=== PATIENT | male | born 1980 | race Caucasian/White ===

== ENCOUNTER → 2022-05-17 12:35 | Outpatient (CLI) | payer OTHER, SELFPAY ==
[2022-05-17 18:28] LABS: Adenovirus,PCR Not Detected (NotDetected); Bordetella Pertussis Not Detected (NotDetected); Chlamydophila Pneumoniae, PCR Not Detected (NotDetected); Coronavirus 19, PCR Not Detected (NotDetected); Coronavirus 229E Not Detected (NotDetected); Coronavirus NL63 Not Detected (NotDetected); Coronavirus OC43 Not Detected (NotDetected); Coronovirus HKU1,PCR Not Detected (NotDetected); Human Metapneumovirus Not Detected (NotDetected); Influenza A, PCR Not Detected (NotDetected); Influenza AH1, 2009 Not Detected (NotDetected); Influenza AH1, PCR Not Detected (NotDetected); Influenza AH3,PCR Not Detected (NotDetected); Influenza B, PCR Not Detected (NotDetected); Mycoplasma Pneumoniae, PCR Not Detected (NotDetected); Parainfluenza 1, PCR Not Detected (NotDetected); Parainfluenza 2, PCR Not Detected (NotDetected); Parainfluenza 3, PCR Not Detected (NotDetected); Parainfluenza 4, PCR Not Detected (NotDetected); Respiratory Syncytial Virus Not Detected (NotDetected); Rhinovirus/Enterovirus Not Detected (NotDetected)
== END ==
PROVIDERS: PCP Nurse Practitioner; Visit Provider Nurse Practitioner
DX: J06.9 Acute upper respiratory infection, unspecified (principal)
CPT/HCPCS: 87581; 87632; 87798; C9803; U0003; U0005

== ENCOUNTER → 2022-10-11 23:21 | Outpatient (CLI) | payer OTHER, SELFPAY ==
[2022-10-11 17:58] LABS: Microscopic, Urine URINE MICROSCOPIC (MICROSCOPIC)
[2022-10-11 18:37] LABS: Alanine Aminotransferase 22 U/L (12-78); Albumin Level 4.5 g/dl (3.5-5.0); Albumin/Globulin Ratio 1.6 (1.1-1.8); Alkaline Phosphatase 64 U/L (38-126); Aspartate Amino Transferase 31 U/L (17-59); Bilirubin,Total 0.6 mg/dl (0.2-1.3); Blood Urea Nitrogen 16 mg/dl (9-20); Carbon Dioxide 28 mmol/L (22.0-30.0); Chloride 105 mmol/L (98-107); Chol/HDL Ratio 3.1 (1-3.5); Cholesterol 156 mg/dl (140-200); Estimated Glomerular Filt Rate 123 ml/min (>60); GFR (African American) 149 ML/MIN (>60); Globulin 2.8 g/dL (1.3-3.2); Glucose 96 mg/dl (74-100); HDL Cholesterol 50 mg/dl (40-60); Potassium 4.4 mmoL/L (3.5-5.1); Total Protein,Serum 7.3 g/dl (6.3-8.2); Triglycerides 73 mg/dl (30-150); VLDL Cholesterol 15 mg/dL (0-40)
[2022-10-11 18:39] LABS: Anion Gap 12.4 mEq/L (5-15); Sodium 141 mmol/L (136-145)
[2022-10-11 18:46] LABS: Basophils % 0.5 % (0.1-2.0); Eosinophils # 0.1 K/mm3 (0.0-0.4); Eosinophils % 1.9 % (0.1-12.0); Hematocrit 47.9 % (42.0-52.0); Hemoglobin 15.3 g/dL (14.1-18.0); Lymphocytes # 2.2 K/mm3 (0.7-4.5); Lymphocytes % 37.4 % (10-50); Mean Corpuscular HGB Conc 31.9 g/dL (31.8-35.4); Mean Corpuscular Volume 94.1 fl (80-94); Mean Platelet Volume 9.2 fl (7.4-10.4); Monocytes # 0.4 K/mm3 (0.1-1.0); Monocytes % 7.1 % (1.7-9.3); Neutrophils # 3.1 K/mm3 (1.8-7.8); Neutrophils % 53.1 % (37.0-80.0); Platelet Count 242 K/mm3 (142-424); Red Blood Count 5.09 M/mm3 (4.60-6.20); Red Cell Distribution Width 13.1 % (11.5-17.5); White Blood Count 5.8 K/mm3 (4.8-10.8)
[2022-10-11 18:49] LABS: C-Reactive Protein 0.9 mg/L (0-4); Direct LDL Cholesterol 83.91 mg/dL (100-129)
[2022-10-11 18:53] LABS: Appearance,Urine CLEAR (Clear); Bilirubin,Urine Negative (Negative); Blood, Urine Negative (Negative); Color,Urine YELLOW (Yellow); Glucose,Urine (UA) Negative (Negative); Ketones,Urine Negative (Negative); Leukocyte Esterase,Urine Negative (Negative); Nitrate,Urine Negative (Negative); Protein,Urine Negative (Negative); Urobilinogen,Urine 0.2 EU/dl (0.2)
[2022-10-11 18:58] LABS: 25-OH Vitamin D, Total 32.3 ng/mL (30-100)
[2022-10-11 19:04] LABS: Creatinine,Urine Random 27 mg/dL (Not Estab.); Microalbumin < 6.000 mg/L (0-16.7)
[2022-10-11 19:11] LABS: Prostate Specific Ag Screen 0.6 ng/ml (0.0-4.0); Thyroid Stimulating Hormone 1.71 uIU/mL (0.465-4.68)
[2022-10-11 19:12] LABS: Squamous Epithelial Cell,Urine Occasional #/hpf (0-5)
[2022-10-11 19:14] LABS: Hemoglobin A1C 5.5 % (4.0-6.0)
[2022-10-11 19:30] LABS: Vitamin B12 319 pg/mL (239-931)
[2022-10-11 19:40] LABS: Erythrocyte Sedimentation Rate 4 mm/hr (0-15)
[2022-10-15 23:25] LABS: Rocky Mtn Spotted Fever, IgM 0.33 index (0.00-0.89)
[2022-10-16 00:07] LABS: RMSF, IgG, EIA Negative (Negative)
[2022-10-18 19:13] LABS: Lyme B. burgdorferi PCR Blood Negative (Negative)
== END ==
PROVIDERS: PCP Nurse Practitioner; Visit Provider Nurse Practitioner
DX: R35.89 Other polyuria (principal); R59.0 Localized enlarged lymph nodes; Z12.5 Encounter for screening for malignant neoplasm of prostate; Z13.1 Encounter for screening for diabetes mellitus; Z13.220 Encounter for screening for lipoid disorders; Z13.29 Encounter for screening for other suspected endocrine disorder; W57.XXXA Bitten or stung by nonvenomous insect and other nonvenomous arthropods, initial encounter
CPT/HCPCS: 80053; 80061; 81001; 82043; 82306; 82570; 82607; 83036; 84443; 85025; 85651; 86140; 86609; 87476; G0103

== ENCOUNTER 2023-07-24 14:55 | Outpatient (CLI) | payer OTHER, SELFPAY ==
--- NOTE | 2023-07-24 14:56 | US_ITS ---
FINAL REPORT CLINICAL HISTORY: pt has tiny palp area superior to lt inguinal superficial FINDINGS: Limited sonographic images of the left inguinal region were obtained. There is a 1.5 cm decreased echogenicity focus in the area of interest of uncertain etiology, could represent a lymph node or other soft tissue nodule. IMPRESSION: Lymph node or other soft tissue nodule at the area of interest. Reviewed, Interpreted and Dictated by Anmol Chowdhury III, MD Transcribed by Cinda Childs Authenticated and [facility] [place]
== END 2023-07-24 23:59 ==
LOC: RAD 14:56
PROVIDERS: PCP Nurse Practitioner; Visit Provider Nurse Practitioner
DX: D48.5 Neoplasm of uncertain behavior of skin (principal); R59.0 Localized enlarged lymph nodes
CPT/HCPCS: 76882

== ENCOUNTER 2024-03-02 07:23 | Day surgery (SDC) | payer OTHER, SELFPAY ==
[2024-02-21 13:00] VITALS: BMI 22.1
[2024-03-02 07:37] VITALS: BP 137/83; PULSE 60; RESP 18; TEMP 36.9; O2SAT 100
--- NOTE | 2024-03-02 07:39 | EXP.ANES.CKL ---
[facility] Disclaimer: The information contained in this section may have been updated after the patient was seen, as this information can be updated by other users. Medical History Urinary tract infection Hyperlipidemia Hypertension Blood in stool Teofilo blood in stool Surgical History No significant past surgical history No history of previous surgery Family History Father Alcoholism Substance abuse Mother Alcoholism Cancer Substance abuse Social History Smoking Status: Current every day smoker alcohol intake: never substance use type: marijuana counseling given: Yes counseling provided: provider counseling current occupational status: employed Travel in the last 8 weeks: None [facility] Anesthesia Checklist Patient Identification Patient Identification: Arm Band and Verbal (Name & ) Structural Data Admitted From: Home Planned Operative Procedure/s: Colonoscopy Consent for Planned Operative Procedure(s) Verified: Yes Verified Documents: Surgical Consent and History and Physical NPO Status Verified Time NPO: 00:00 Additional verifications Anesthesia Reactions: No Airway Assessment Mallampati Score:: Class II C-Spine Mobility Assessed: Yes TMJ Mobility Assessed: Yes Dentition: Poor Dentition Neurological Assessment Level of Consciousness: Awake Hx Seizures: No Numbness or tingling in extremities: No Anesthesia Plan Anesthesia Risk discussed: Yes Anesthesia Plan: Verified ASA Class: II Anesthesia Type: MAC
[2024-03-02] MEDS: LACTATED RINGERS 1000ML 1,000 ML 25 ML IV (07:42)
--- NOTE | 2024-03-02 07:45 | P.PCN_ITS ---
[facility] Procedure Note Date: 03/02/24 Time: 07:45 Procedure Note:: Colonoscopy Procedure Report: Colonoscopy with monopolar ablation/coagulation of internal hemorrhoids Endoscopist: Angel Costa II, MD Referring physician: QIANA Lin Date of Procedure: March 02, 2024 Equipment: Olympus 190 variable stiffness pediatric colonoscope Sedation: MAC sedation Indication: Mr. Spence is a 43-year-old gentleman who is here for diagnostic colonoscopy secondary to bright red blood per rectum. The patient does state that he sees bright red blood approximately once monthly mostly on the toilet tissue. This is painless bleeding. He reports no abdominal pain or anorectal pain. He reports no change in his bowel habits but does note intermittent loose stools. He reports no other abdominal pain, weight loss or family history of colon cancer. His father and grandmother had diverticulitis with colon resection. He reports no external hemorrhoids. Procedure: Prior to the procedure, a history and physical exam was performed, and patient's medications and allergies were reviewed. The risks, benefits and alternatives of the sedation and procedure were discussed with the patient. All questions were answered and informed consent was obtained. The patient was brought to the procedure room. Patient identification and proposed procedure were verified by the physician and the nurse. The patient was placed in a left lateral decubitus position and the scope was passed under direct vision. Throughout the procedure, the patient's blood pressure, pulse, and oxygen saturations were monitored continuously. The colonoscopy was accomplished without difficulty. The patient tolerated the procedure well. Findings: On digital rectal examination there was normal rectal tone. There were no external hemorrhoids. The colonoscope was introduced through the anal canal to the rectum and advanced to the cecum. The ileocecal valve and appendiceal orifice were identified. The scope was advanced a short distance into the ileum which appeared grossly normal. The scope was then withdrawn into the colon. The cecum, ascending, transverse, descending, sigmoid and rectum were grossly normal. There were no mucosal abnormalities identified. Upon retroflexion within the rectum there were grade 1-2 internal hemorrhoids. These were ablated using monopolar ablation/coagulation to destruction.The preparation was excellent throughout with [place] Preparation Score of 9. The cecal time was 10 minutes. Impression: 1. Normal colonoscopy with intubation of the terminal ileum 2. Grade 1-2 internal hemorrhoids status post monopolar ablation/coagulation Plan: I would encourage bulking fiber supplementation on a long-term daily maintenance basis. The patient will not require surveillance colonoscopy again for 10 years by ACS guidelines.
[2024-03-02 07:51] VITALS: O2SAT 100
[2024-03-02 08:14] VITALS: BP 91/53; PULSE 53; RESP 16; TEMP 36.3; O2SAT 99
[2024-03-02 08:24] VITALS: BP 100/52; PULSE 50; RESP 16; O2SAT 99
[2024-03-02 08:34] VITALS: BP 103/57; PULSE 50; RESP 16; O2SAT 100
[2024-03-02 08:39] VITALS: BP 119/67; PULSE 50; RESP 16; O2SAT 98
== END 2024-03-02 08:51 | disposition home or self-care (01) ==
PROVIDERS: PCP Nurse Practitioner; Visit Provider Internal Medicine Gastroenterology
DX: K62.5 Hemorrhage of anus and rectum (principal); K64.8 Other hemorrhoids
CPT/HCPCS: 45382; J7120

== ENCOUNTER 2024-03-31 13:59 | Outpatient (CLI) | payer OTHER, SELFPAY ==
--- NOTE | 2024-03-31 14:02 | XR_ITS ---
FINAL REPORT CLINICAL HISTORY: left sided low back pain with left-sided sciatica FINDINGS: LUMBAR SPINE Three views demonstrate no acute fracture. There is moderate disc space narrowing at L5-S1. Lower lumbar facet sclerosis is identified. There is no malalignment. IMPRESSION: Degenerative changes as above. Reviewed, Interpreted and Dictated by Tres Ly MD Transcribed by Cinda Childs Authenticated and [facility]
== END 2024-03-31 23:59 | disposition home or self-care (01) ==
LOC: RAD 13:59
PROVIDERS: PCP Nurse Practitioner; Visit Provider Nurse Practitioner
DX: M54.42 Lumbago with sciatica, left side (principal)
CPT/HCPCS: 72100

== ENCOUNTER 2024-04-07 13:20 | Outpatient (CLI) | payer OTHER, SELFPAY ==
--- NOTE | 2024-04-07 13:21 | CT_ITS ---
PROCEDURE INFORMATION: Exam: CT Abdomen And Pelvis With Contrast Exam date and time: 04/07/2024 1:38 PM Age: 43 years old Clinical indication: Abdominal pain; Flank; Left; Additional info: Left flank pain TECHNIQUE: Imaging protocol: Computed tomography of the abdomen and pelvis with contrast. Radiation optimization: All CT scans at this facility use at least one of these dose optimization techniques: automated exposure control; mA and/or kV adjustment per patient size (includes targeted exams where dose is matched to clinical indication); or iterative reconstruction. Contrast material: ISOVUE; Contrast volume: 75 ml; Contrast route: IV; COMPARISON: CR XR LUMBAR SPINE 2-3V 03/31/2024 2:07 PM FINDINGS: Liver: Normal. No mass. Gallbladder and biliary ducts: The gallbladder is unremarkable Pancreas: Normal. No ductal dilation. Spleen: Normal. No splenomegaly. Adrenal glands: Normal. No mass. Kidneys and ureters: There is no evidence of renal or ureteral calcifications. 10 mm nodule anterior left kidney 30 Hounsfield units (series 2, image 35). Stomach and bowel: Unremarkable. No obstruction. No mucosal thickening. Appendix: Normal appendix Intraperitoneal space: Unremarkable. No free air. No significant fluid collection. Vasculature: Unremarkable. No abdominal aortic aneurysm. Lymph nodes: Unremarkable. No enlarged lymph nodes. Urinary bladder: Unremarkable as visualized. Reproductive: Unremarkable as visualized. Bones/joints: 7 mm bubble of air adjacent to the right sacroiliac joint may be secondary to procedure or trauma in the region of the sacroiliac joint Soft tissues: Unremarkable. IMPRESSION: 10 mm nodule anterior left kidney 30 Hounsfield units (series 2, image 35).Recommend MR without and with contrast or CT without and with contrast. MR is preferred for masses under 1.5 cm.
[2024-04-07] MEDS: BARIUM SULFATE(READI-CAT2);450ML BOTTLE 450 ML PO (13:45)
[2024-04-07] MEDS: SODIUM CHLORIDE 0.9% 10ML SYR (RAD ONLY) 10 ML IV (13:46)
[2024-04-07] MEDS: IOPAMIDOL-370 (76%);100ML BOTTLE 75 ML IV (13:46)
== END 2024-04-07 23:59 | disposition home or self-care (01) ==
LOC: RAD 13:20
PROVIDERS: PCP Nurse Practitioner; Visit Provider Nurse Practitioner
DX: R10.9 Unspecified abdominal pain (principal)
CPT/HCPCS: 74177; Q9967

== ENCOUNTER 2024-04-23 16:47 | Outpatient (CLI) | payer OTHER, SELFPAY ==
[2024-04-23 17:09] LABS: Blood Urea Nitrogen 18 mg/dl (9-20); Estimated Glomerular Filt Rate 81 ml/min (>60); GFR (African American) 98 ML/MIN (>60)
== END 2024-04-23 23:59 | disposition home or self-care (01) ==
LOC: RAD 16:48
PROVIDERS: PCP Nurse Practitioner; Visit Provider Nurse Practitioner
DX: R10.9 Unspecified abdominal pain (principal); R93.429 Abnormal radiologic findings on diagnostic imaging of unspecified kidney
CPT/HCPCS: 36415; 82565; 84520

== ENCOUNTER 2024-05-08 08:13 | Outpatient (CLI) | payer OTHER, SELFPAY ==
--- NOTE | 2024-05-08 08:14 | MR_ITS ---
FINAL REPORT CLINICAL HISTORY: left kidney nodule 15 ml prohance COMPARISON: None FINDINGS: Multiplanar MR imaging of the abdomen was performed without and with contrast. The liver is homogeneous. The spleen is normal in size. The pancreas and adrenal glands have an unremarkable appearance. The kidneys demonstrate no hydronephrosis. There is no abnormal enhancement. There are are localized signal abnormalities in the anterior left kidney which appear to be 2 contiguous foci measuring up to 10 mm in greatest dimension. These appear to represent benign cysts. There is a little overlying normal enhancing in the parenchyma. IMPRESSION: Left kidney nodule in question likely represents benign cysts. Reviewed, Interpreted and Dictated by Tres Ly MD Transcribed by Celestina Mcnulty Authenticated and [facility]
[2024-05-08] MEDS: GADOTERIDOL INJ 20ML SYRINGE 15 ML IV (09:16)
[2024-05-08] MEDS: SODIUM CHLORIDE 0.9% 10ML SYR (RAD ONLY) 10 ML IV (09:16)
[2024-05-08] MEDS: 0.9 % SODIUM CHLORIDE 50 ML VIAL IV (09:16)
== END 2024-05-08 23:59 | disposition home or self-care (01) ==
LOC: RAD 08:14
PROVIDERS: PCP Nurse Practitioner; Visit Provider Nurse Practitioner
DX: N28.89 Other specified disorders of kidney and ureter (principal); R10.9 Unspecified abdominal pain; R93.429 Abnormal radiologic findings on diagnostic imaging of unspecified kidney
CPT/HCPCS: 74183; A9576